=== PATIENT | female | born 1985 | race Caucasian/White ===

== ENCOUNTER 2017-12-19 17:14 | Emergency (ER) | payer BC ==
[~2017-12-19] VITALS: Ht 165.1 cm; Wt 79.5 kg
[2017-12-19 18:19] VITALS: Ht 165.1 cm; Wt 79.5 kg
[2017-12-19 19:05] LABS: BASOPHILS 0.1 % (0-2); EOSINOPHILS 2.4 % (0-7); HEMATOCRIT 41.6 % (36.0-48.0); HEMOGLOBIN 14.2 g/dL (12-16); IMMATURE GRANULOCYTES 0.1 % (0-5); LYMPHOCYTES 21.6 % (15-50); MCH 32.2 pg (26.0-34.0); MCHC 34.1 g/dL (31.0-37.0); MCV 94.3 fL (80.0-100.0); MEAN PLATELET VOLUME 9.8 fL (7.4-10.4); MONOCYTES 10.2 % (2-11); NEUTROPHILS 65.6 % (40-80); PLATELET COUNT 186 10x3/uL (130-400); RBC 4.41 10x6/uL (4.00-5.40); RDW 12.2 % (11.5-14.5)
[2017-12-19 19:42] LABS: ALBUMIN 3.4 g/dL (3.4-5.0); ALKALINE PHOSPHATASE 57 U/L (46-116); ALT (SGPT) 18 U/L (10-68); BILIRUBIN - TOTAL 0.24 mg/dL (0.2-1.3); CALC OSMOLALITY 278 mosm/kg (275-300); CALCIUM 8.7 mg/dL (8.5-10.1); CARBON DIOXIDE 28.1 mmol/L (21.0-32.0); CHLORIDE - SERUM 104 mmol/L (98-107); CREATININE - SERUM 0.8 mg/dL (0.6-1.3); GLUCOSE 100 mg/dL (74-106); PROTEIN - SERUM 6.9 g/dL (6.4-8.2); SODIUM 140 mmol/L (136-145); UREA NITROGEN 13 mg/dL (7-18); eGFR NON AFRICAN AMERICAN 87 mL/min (90-120)
[2017-12-19 19:45] LABS: AMYLASE - SERUM 72 U/L (25-115); LIPASE 71 U/L (73-393); TROPONIN-I < 0.017 ng/mL (0.000-0.060)
[2017-12-19 20:30] LABS: APPEARANCE HAZY (CLEAR); BILIRUBIN NEGATIVE (NEGATIVE); COLOR YELLOW (YELLOW); GLUCOSE NEGATIVE (NEGATIVE); KETONE NEGATIVE (NEGATIVE); NITRITE NEGATIVE (NEGATIVE); PROTEIN NEGATIVE (NEGATIVE); UROBILINOGEN NORMAL (NORMAL)
[2017-12-20 01:35] VITALS: BP 112/65
== END 2017-12-20 00:30 | disposition home or self-care (01) ==
LOC: D.ER 17:14
PROVIDERS: Family Medicine
DX: R51 Headache (principal); Z86.69 Personal history of other diseases of the nervous system and sense organs; Z86.79 Personal history of other diseases of the circulatory system; R11.2 Nausea with vomiting, unspecified; F17.200 Nicotine dependence, unspecified, uncomplicated

== ENCOUNTER → 2019-08-20 10:43 | Outpatient (CLI) | payer BC ==
[2017-12-19 18:19] VITALS: BMI 29.1
== END | disposition home or self-care (01) ==
LOC: D.RAD 10:43 → D.RT 11:30
PROVIDERS: ATTEND Internal Medicine Pulmonary Disease
DX: J44.9 Chronic obstructive pulmonary disease, unspecified (principal)